=== PATIENT | female | born 1965 | race Caucasian/White ===

== ENCOUNTER 2021-05-07 20:32 | Inpatient (IN) | payer MEDICAID ==
[~2021-05-07] VITALS: Ht 167.6 cm; Wt 113.9 kg
[~2021-05-07 20:32] MED LIST: FLOMAX0.4 MG PO; PERCOCET 5/325 T1 EA PO; TORADOL 10 MG T10 MG PO; VENTOLIN HFA 66.7 GM INH; ZOFRAN4 MG PO
[2021-05-07 20:46] LABS: HEMOGLOBIN 13.8 gm/dl (12.3-15.3); RED BLOOD COUNT 4.97 M/UL (4.00-5.10); WHITE BLOOD COUNT 10.9 K/UL (4.5-11.0)
[2021-05-07 21:22] LABS: BUN/CREATININE RATIO 23 (0-10)
[2021-05-08] MEDS ORDERED: PROAIR HFA8.5 GM INH (03:42)
[2021-05-08] MEDS ORDERED: ALBUTEROL2.5 MG/3 M INH (03:43)
[2021-05-09 06:29] LABS: HEMOGLOBIN 13.1 gm/dl (12.3-15.3); RED BLOOD COUNT 4.78 M/UL (4.00-5.10); WHITE BLOOD COUNT 15.7 K/UL (4.5-11.0)
[2021-05-09 07:17] LABS: BUN/CREATININE RATIO 32 (0-10)
[2021-05-09] MEDS ORDERED: LOPRESSOR 25 MG25 MG PO (09:14)
[2021-05-09] MEDS ORDERED: MEDROL DOSEPAK 24 MG PO (09:14)
[2021-05-09] MEDS ORDERED: ATROVENT-H0.065 GM/I INH (09:14)
== END 2021-05-09 12:20 | disposition home or self-care (01) | DRG 189 ==
LOC: ER1 20:32 → MED SURG 4 05-08 02:41 → CDU 05-08 02:41 → MED SURG 4 05-08 03:32
PROVIDERS: Family Medicine; Physician Assistant; ADMIT Internal Medicine
PROC: B24BZZZ Ultrasonography of Heart with Aorta (ICD-10-PCS; principal; 2021-05-08)
DX: J96.01 Acute respiratory failure with hypoxia (principal); J45.901 Unspecified asthma with (acute) exacerbation; J44.1 Chronic obstructive pulmonary disease with (acute) exacerbation; Z68.41 Body mass index [BMI] 40.0-44.9, adult; Z20.822 Contact with and (suspected) exposure to COVID-19; D72.829 Elevated white blood cell count, unspecified; E66.01 Morbid (severe) obesity due to excess calories; R00.0 Tachycardia, unspecified; Z86.718 Personal history of other venous thrombosis and embolism; Z79.01 Long term (current) use of anticoagulants; Z87.891 Personal history of nicotine dependence; Z86.16 Personal history of COVID-19
CPT/HCPCS: ECHO; 36415; 36600; 70486; 71045; 80048; 80053; 81001; 82550; 82553; 82728; 82803; 83605; 83735; 83874; 83880; 84439; 84443; 84484; 85025; 86140; 87040; 87086; 93005; 93306; 94640; 94760; 96374; 99285; C9113; J1650; J2920; J2930; Q9967; U0002